=== PATIENT | female | born 1965 | race African-American/Black ===

== ENCOUNTER 2025-05-20 16:44 | Inpatient (IN) | payer MEDICARE ==
[2025-05-20 17:53] LABS: ALV-art Gradient 117.225 mmHg (0-20); Actual Bicarbonate (HCO3a) 25.7 mEq/L (22-28); Analyzer IN Cardio CS ER; Base Excess (BEa) -1.7 mEq/L (-2.0 to +3.0); CO2 Tension 54.1 mmHg (35.0-45.0); Calcium, Ionized (arterial) 1.17 mmol/L (1.12-1.30); Critical Notified By: clumpkins rt; Hematocrit-ABG 45 % (36.0-47.0); Hemoglobin (Hb) 15.3 g/dL (12.0-16.0); O2 Tension (PaO2), arterial 64.7 mmHg (> 80.0); Potassium - ABG Lab 4.36 mmol/L (3.70-5.30); Puncture Site Left Radial artery; RapidComm Collect By clumpkins rt; pH, Arterial 7.295 (7.35-7.45)
[2025-05-20] MEDS ORDERED: Melatonin 3 MG TAB PO PRN (19:36)
[2025-05-20] MEDS ORDERED: Ondansetron PF 4 MG/2 ML Vial IVP PRN (19:36)
[2025-05-20] MEDS ORDERED: Bisacodyl 10 MG SUPP PR PRN (19:36)
[2025-05-20] MEDS ORDERED: Senokot S 8.6-50 MG TAB PO PRN (19:36)
[2025-05-20] MEDS ORDERED: Electrolyte Replacement Protocol 1 EACH FS SCH (19:45)
[2025-05-20] MEDS ORDERED: PHOS-NAK 1 PKT PACK PO PRN (20:00)
[2025-05-20] MEDS ORDERED: Potassium Chloride 20 MEQ in Premix 1 BAG IVPB PRN (20:00)
[2025-05-20] MEDS ORDERED: hydrALAZINE 20 MG/ML VIAL SLOW IVP PRN (20:04)
[2025-05-20 20:40] VITALS: BMI 29.7
[2025-05-20] MEDS: Mupirocin 1 GM TUBE TP SCH (21:09)
[2025-05-20] MEDS: Mometasone 200 MCG/Formoterol 5 MCG 60 PUFF INHALER INH SCH (21:59)
[2025-05-21 03:34] LABS: Actual Bicarbonate (HCO3a) 27.3 mEq/L (22-28); Analyzer IN Cardio CS ICU; Base Excess (BEa) 0.3 mEq/L (-2.0 to +3.0); CO2 Tension 53.7 mmHg (35.0-45.0); Calcium, Ionized (arterial) 1.21 mmol/L (1.12-1.30); Hematocrit-ABG 41 % (36.0-47.0); Hemoglobin (Hb) 14.1 g/dL (12.0-16.0); O2 Tension (PaO2), arterial 70.8 mmHg (> 80.0); Potassium - ABG Lab 4.57 mmol/L (3.70-5.30); Puncture Site Right Radial artery; pH, Arterial 7.324 (7.35-7.45)
[2025-05-21 03:35] LABS: ALV-art Gradient 111.625 mmHg (0-20)
[2025-05-21 03:59] LABS: #Basophils Less than 0.03 10x3/uL (0.0-0.2); #Eosinophils Less than 0.03 10x3/uL (0.0-0.5); #Monocytes 0.16 10x3/uL (0.0-1.1); #Neutrophils 3.70 10x3/uL (1.5-8.4); %Basophils 0.2 % (0.0-2.0); %Eosinophils 0.0 % (0.0-6.0); %Lymphocytes 14.1 % (18.0-47.0); %Monocytes 3.5 % (0.0-10.0); %Neutrophils 81.5 % (40.0-75.0); Hematocrit 43.6 % (34.9-44.5); Hemoglobin 13.7 g/dL (12.0-15.5); Mean Corpuscular Hemoglobin 27.5 pg (27.0-33.0); Mean Corpuscular Volume 87.6 fL (81.6-98.3); Platelet Count 163 10x3/uL (150-450); Red Blood Cell (RBC) Count 4.98 10x6/uL (3.90-5.03); White Blood Cell (WBC) Count 4.54 10x3/uL (3.5-10.5)
[2025-05-21 04:53] LABS: ALT (SGPT) 9 U/L (Less than 34); AST (SGOT) 10 U/L (11-34); Albumin 2.8 g/dL (3.1-4.5); Alkaline Phosphatase 58 U/L (40-110); Anion Gap 10 mmol/L (10-20); BUN (Urea Nitrogen) 8 mg/dL (9.8-20.1); Bilirubin, Total 0.2 mg/dL (0.3-1.2); Calc. Creatinine Clearance 164 mL/min (70-130); Calcium 7.0 mg/dL (7.8-10.44); Carbon Dioxide 23 mmol/L (23-31); Chloride 110 mmol/L (98-107); Globulin 3.4 g/dL (2.4-3.5); Glucose 157 mg/dL (80-115); Potassium 3.6 mmol/L (3.5-5.1); Sodium 139 mmol/L (136-145)
[2025-05-21] MEDS: Azithromycin 250 MG TAB PO SCH (05:59)
[2025-05-21] MEDS ORDERED: Mometasone 200 MCG/Formoterol 5 MCG 60 PUFF INHALER INH SCH (06:30)
[2025-05-21 07:20] LABS: Magnesium 1.8 mg/dL (1.6-2.6)
[2025-05-21] MEDS: Pantoprazole 40 MG DR.TAB PO SCH (08:50)
[2025-05-21] MEDS: Enoxaparin 40 MG (0.4 mL) SYRINGE SC SCH (08:50)
[2025-05-22 04:21] LABS: Anion Gap 10 mmol/L (10-20); BUN (Urea Nitrogen) 15 mg/dL (9.8-20.1); Calc. Creatinine Clearance 116 mL/min (70-130); Calcium 8.8 mg/dL (7.8-10.44); Carbon Dioxide 25 mmol/L (23-31); Chloride 103 mmol/L (98-107); Glucose 347 mg/dL (80-115); Potassium 4.4 mmol/L (3.5-5.1); Sodium 134 mmol/L (136-145)
[2025-05-22] MEDS: Folic Acid 1 MG TAB PO SCH (10:01)
[2025-05-22] MEDS: Thiamine 100 MG TAB PO SCH (10:02)
[2025-05-22] MEDS ORDERED: Dextrose 50% Abboject 50 ML SYRINGE SLOW IVP PRN ×2 (10:15→10:58)
[2025-05-22] MEDS ORDERED: Glucagon 1 MG/ML KIT IM PRN ×2 (10:15→10:58)
[2025-05-22] MEDS: Lantus 1000 UNITS/10 ML VIAL SC SCH (11:34)
[2025-05-22 11:45] LABS: Magnesium 2.2 mg/dL (1.6-2.6)
[2025-05-22] MEDS: Guaifenesin DM 100-10/5 ML UDCUP PO PRN (16:30)
[2025-05-23 08:07] LABS: Anion Gap 11 mmol/L (10-20); BUN (Urea Nitrogen) 17 mg/dL (9.8-20.1); Calc. Creatinine Clearance 120 mL/min (70-130); Calcium 8.7 mg/dL (7.8-10.44); Carbon Dioxide 26 mmol/L (23-31); Chloride 102 mmol/L (98-107); Glucose 315 mg/dL (80-115); Potassium 4.0 mmol/L (3.5-5.1); Sodium 135 mmol/L (136-145)
[2025-05-23] MEDS: Lantus 1000 UNITS/10 ML VIAL SC SCH (09:02)
[2025-05-23] MEDS: Acetaminophen 325 MG TAB PO PRN (20:55)
[2025-05-24] MEDS: predniSONE 20 MG TAB PO SCH (08:52)
[2025-05-24] MEDS: Lantus 1000 UNITS/10 ML VIAL SC SCH ×2 (08:52→21:02)
[2025-05-24] MEDS: metFORMIN 500 MG TAB PO SCH (21:05)
[2025-05-25 05:41] LABS: #Basophils Less than 0.03 10x3/uL (0.0-0.2); #Eosinophils 0.07 10x3/uL (0.0-0.5); #Monocytes 0.62 10x3/uL (0.0-1.1); #Neutrophils 5.92 10x3/uL (1.5-8.4); %Basophils 0.1 % (0.0-2.0); %Eosinophils 0.6 % (0.0-6.0); %Lymphocytes 42.9 % (18.0-47.0); %Monocytes 5.3 % (0.0-10.0); %Neutrophils 50.8 % (40.0-75.0); Hematocrit 43.0 % (34.9-44.5); Hemoglobin 14.1 g/dL (12.0-15.5); Mean Corpuscular Hemoglobin 27.1 pg (27.0-33.0); Mean Corpuscular Volume 82.7 fL (81.6-98.3); Platelet Count 203 10x3/uL (150-450); Red Blood Cell (RBC) Count 5.20 10x6/uL (3.90-5.03); White Blood Cell (WBC) Count 11.64 10x3/uL (3.5-10.5)
[2025-05-25 05:52] LABS: Anion Gap 10 mmol/L (10-20); BUN (Urea Nitrogen) 17 mg/dL (9.8-20.1); Calc. Creatinine Clearance 135 mL/min (70-130); Calcium 8.6 mg/dL (7.8-10.44); Carbon Dioxide 25 mmol/L (23-31); Chloride 102 mmol/L (98-107); Glucose 174 mg/dL (80-115); Potassium 4.0 mmol/L (3.5-5.1); Sodium 133 mmol/L (136-145)
[2025-05-25] MEDS: metFORMIN 500 MG TAB PO SCH (09:10)
[2025-05-25 12:23] VITALS: BP 137/80; TEMP 98.1
== END 2025-05-25 12:00 | disposition home or self-care (01) | DRG 189 ==
LOC: CSHERS 16:44 → CSHICU 19:39 → CSHTELE 05-22 11:59
PROVIDERS: ADMIT Internal Medicine; ATTEND Hospitalist
PROC: 5A09457 Assistance with Respiratory Ventilation, 24-96 Consecutive Hours, Continuous Positive Airway Pressure (ICD-10-PCS; principal; 2025-05-20)
DX: J96.02 Acute respiratory failure with hypercapnia (principal); J44.1 Chronic obstructive pulmonary disease with (acute) exacerbation; G93.49 Other encephalopathy; J44.9 Chronic obstructive pulmonary disease, unspecified; I10 Essential (primary) hypertension; E78.5 Hyperlipidemia, unspecified; K21.9 Gastro-esophageal reflux disease without esophagitis; F17.210 Nicotine dependence, cigarettes, uncomplicated; R73.9 Hyperglycemia, unspecified; T38.0X5A Adverse effect of glucocorticoids and synthetic analogues, initial encounter; E66.3 Overweight; Z68.29 Body mass index [BMI] 29.0-29.9, adult; Z88.1 Allergy status to other antibiotic agents; Z79.899 Other long term (current) drug therapy
CPT/HCPCS: 36415; 36416; 36600; 80048; 80053; 82805; 83036; 83735; 84100; 85025; 87070; 87205; 87633; 94640; 94660; 94664; 94760; 94762; J1650; J1815; J2919; J7030; J7512; J7626